=== PATIENT | female | born 1985 | race Hispanic/Latino ===

== ENCOUNTER 2018-05-08 18:59 | Emergency (ER) | payer OTHER ==
[2018-05-08] MEDS ORDERED: ACETAMINOPHEN EXTRA STRENGTH 500 MG TABLET ONE (19:38)
[2018-05-08] MEDS ORDERED: DIAZEPAM 5 MG TABLET ONE (19:38)
[2018-05-08] MEDS ORDERED: KETOROLAC TROMETHAMINE 60 MG/2 ML VIAL ONE (19:38)
== END 2018-05-08 21:16 | disposition home or self-care (01) ==
LOC: EDH 18:59
DX: S29.012A Strain of muscle and tendon of back wall of thorax, initial encounter (principal); X58.XXXA Exposure to other specified factors, initial encounter; Y93.89 Activity, other specified; Y92.89 Other specified places as the place of occurrence of the external cause; Y99.8 Other external cause status
CPT/HCPCS: 96372; 99283; J1885

== ENCOUNTER 2018-05-19 06:20 | Emergency (ER) | payer OTHER ==
[2018-05-19] MEDS ORDERED: KETOROLAC TROMETHAMINE 30MG/ML ONE (06:55)
[2018-05-19 07:00] LABS: BASOPHILS % (AUTO) 0.8 % (0.0-5.0); EOSINOPHILS % (AUTO) 0.2 % (0.0-8.0); LYMPHOCYTES % (AUTO) 15.7 % (21.0-51.0); MEAN CORPUSCULAR HEMOGLOBIN 28.3 pg (27.0-33.0); MEAN CORPUSCULAR HGB CONC 33.4 g/dL (32.0-36.0); MEAN CORPUSCULAR VOLUME 84.8 fL (79-99); MONOCYTES % (AUTO) 4.5 % (3.0-13.0); NEUTROPHILS % (AUTO) 78.8 % (40.0-77.0); NUCLEATED RED BLOOD CELLS 0.1 % (0.0-0.19); PLATELET COUNT (AUTO) 152 K/uL (130-400); RED BLOOD CELL COUNT(AUTO) 5.19 MIL/uL (4.00-5.50); RED CELL DISTRIBUTION WIDTH 13.9 % (11.0-15.5)
[2018-05-19 07:10] LABS: CREATININE 0.7 mg/dL (0.5-1.5); POTASSIUM 4.2 mmol/L (3.5-5.1)
[2018-05-19 07:15] LABS: APPEARANCE,URINE CLEAR (CLEAR); BILIRUBIN,URINE NEGATIVE (NEGATIVE); COLOR,URINE YELLOW (YELLOW); GLUCOSE, URINE (UA) NEGATIVE (NEGATIVE); KETONES,URINE NEGATIVE (NEGATIVE); LEUKOCYTE ESTERASE ,URINE NEGATIVE (NEGATIVE); NITRATE,URINE NEGATIVE (NEGATIVE); OCCULT BLOOD,URINE MODERATE (NEGATIVE); PROTEIN,URINE NEGATIVE (NEGATIVE); UROBILINOGEN,URINE 0.2 mg/dL (0.2-1.0)
[2018-05-19 07:16] LABS: ALBUMIN 4.2 g/dL (3.5-5.0); BILIRUBIN,TOTAL 0.4 mg/dL (0.2-1.0); TOTAL PROTEIN, SERUM 8.8 g/dL (6.0-8.3)
[2018-05-19 07:21] LABS: HCG,QUAL RESULT NEGATIVE (NEGATIVE)
[2018-05-19 07:24] LABS: RBC,URINE 0-1 /HPF (0-1)
[2018-05-19 07:25] LABS: BACTERIA,URINE Rare /HPF (None Seen); SQUAMOUS EPITHELIAL CELL,UR Rare /HPF (0-2)
[2018-05-19] MEDS ORDERED: MORPHINE SULFATE 4 MG/1ML SYG ONE (08:30)
[2018-05-19] MEDS ORDERED: ONDANSETRON HCL MDV 20ML 2 MG/ML VIAL ONE (08:30)
[2018-05-19 10:04] LABS: CREATINE KINASE, TOTAL 129 U/L (21-232); MYOGLOBIN 33 ng/mL (10-92)
[2018-05-19] MEDS ORDERED: DIAZEPAM 2 MG TAB ONE (10:17)
== END 2018-05-19 11:45 | disposition home or self-care (01) ==
LOC: EDH 06:20
DX: M54.6 Pain in thoracic spine (principal); R10.9 Unspecified abdominal pain; Z98.890 Other specified postprocedural states
CPT/HCPCS: 36415; 74176; 76705; 80053; 81001; 81025; 82550; 83690; 83874; 85025; 96374; 96375; 99285; J1885; J2270